=== PATIENT | female | born 1990 | race Two or more races ===

== ENCOUNTER 2025-02-11 13:12 | Emergency (ER) | payer OTHER ==
[~2025-02-11] VITALS: Ht 172.7 cm; Wt 68.5 kg
[2025-02-11 13:14] VITALS: BP 132/86; PULSE 103; RESP 16; O2SAT 98
--- NOTE | 2025-02-11 14:59 | DVH ---
EXAM: XY L FOOT 3 VIEW XRAY INDICATION: ro fb TECHNIQUE: 3 views of the left foot COMPARISON: None FINDINGS/IMPRESSION: No radiographic evidence of an acute osseous abnormality. There is no acute fracture, osseous malalignment, or aggressive focal osseous lesion. No radiopaque foreign body.
--- NOTE | 2025-02-11 16:40 | ED.PDOC ---
HPI Comments 34 y.o female presents to the ED for an evaluation of a laceration to her left lateral food. Patient reports around [id number] today, she heard her neighbor fall, went to assist him up and noticed laceration due to shattered glass shattered on the floor. Controlled bleeding upon ED arrival and was irrigated prior to laceration repair. She is up to date with tetanus vaccine. she denies any fever, chills or numbness to foot. Laceration measures 2.5cm and is a U- shape. Chief Complaint: Laceration Time Seen by MD: 16:30 Reviewed Notes: Nurses Notes, Medications, Allergies Allergies: Coded Allergies: NO KNOWN ALLERGIES (Unverified , 02/11/25) Information Source: Patient Mode of Arrival: Ambulatory Severity: Moderate Severity of Laceration: Controlled Bleeding Complexity: Simple Timing: Hours Laceration Location: Foot Mechanism: Glass Laceration Length (cm): 2 Skin Type: Irregular Depth of Injury: Skin Tender: Moderate Associated Signs and Symptoms: Bleeding Past Medical History PAST MEDICAL HISTORY: Denies Surgical History: Denies all surgeries GUEST EXPERIENCE CAPTAIN History: No Pertinent GUEST EXPERIENCE CAPTAIN History Family History Family History: Reviewed,noncontributory to illness Social History Smoker: Non-Smoker Alcohol: Denies ETOH Use Drugs: Denies Drug Use Lives In: Home Constitutional: denies: chills, diaphoresis, fatigue, fever, malaise, sweats, weakness, others EENTM: denies: blurred vision, double vision, ear bleeding, ear discharge, ear drainage, ear pain, ear ringing, eye pain, eye redness, hearing loss, mouth pain, mouth swelling, nasal discharge, nose bleeding, nose congestion, nose pain, photophobia, tearing, throat pain, throat swelling, voice changes, others Respiratory: denies: cough, hemoptysis, orthopnea, SOB at rest, shortness of breath, SOB with excertion, stridor, wheezing, others Cardiovascular: denies: chest pain, dizzy spells, diaphoresis, Dyspnea on exertion, edema, irregular heart beat, left arm pain, lightheadedness, palpitations, PND, syncope, others Gastrointestinal: denies: abdomen distended, abdominal pain, blood streaked bowels, constipated, diarrhea, dysphagia, difficulty swallowing, hematemesis, melena, nausea, poor appetite, poor fluid intake, rectal bleeding, rectal pain, vomiting, others Genitourinary: denies: abnormal vagina bleeding, burning, dyspareunia, dysuria, flank pain, frequency, hematuria, incontinence, pain, , vagina discharge, urgency, others Neurological: denies: dizziness, fainting, headache, left sided numbness, left sided weakness, numbness, paresthesia, pre-existing deficit, right sided numbness, right sided weakness, seizure, speech problems, tingling, tremors, weakness, others Musculoskeletal: denies: back pain, gout, joint pain, joint swelling, muscle pain, muscle stiffness, neck pain, others Integumetry: reports: laceration; denies: bruises, change in color, change in hair/nails, dryness, lesions, lumps, rash, wounds, others Allergic/Immunocompromised: denies: Difficulty Healing, Frequent Infections, Hives, Itching, others Hematologic/Lymphatic: denies: anemia, blood clots, easy bleeding, easy b ruising, swollen glands, others Endocrine: denies: excessive hunger, excessive sweating, excessive thirst, excessive urination, flushing, intolerance to cold, intolerance to heat, unexplained weight gain, unexplained weight loss, others Psychiatric: denies: anxiety, bipolar disorder, depression, hopeless, panic disorder, schizophrenia, sleepless, suicidal, others All Other Systems: Reviewed and Negative Physical Exam General Appearance: No Apparent Distress, Normal HEENT: Normal ENT Inspection, Pharynx Normal, TMs Normal Neck: Full Range of Motion, Non-Tender, Normal, Normal Inspection Respiratory: Chest Non-Tender, Lungs Clear, No Accessory Muscle Use, No Respiratory Distress, Normal Breath Sounds Cardiovascular: No Edema, No JVD, No Murmur, No Gallop, Normal Peripheral Pulses, Regular Rate/Rhythm Breast Exam: Deferred Gastrointestinal: No Organomegaly, Non Tender, No Pulsatile Mass, Normal Bowel Sounds, Soft Genitalia: Deferred Pelvic: Deferred Rectal: Deferred Extremities: No calf tenderness, Normal capillary refill, Normal inspection, Normal range of motion, Non-tender, No pedal edema Musculoskeletal : Apperance: Normal Neurologic: Alert, database marketing manager II-XII nml as Tested, No Motor Deficits, Normal Affect, Normal Mood, No Sensory Deficits Cerebellar Function: Normal Reflexes: Normal Skin: Lacerations (2.5cm U-shape laceration to the left lateral foot ) Lymphatic: No Adenopathy Was a procedure done? Was a procedure done?: Yes Sedation Sedation?: No Laceration Repair : Location left lateral foot Length 2.5 Anesthetic: Lidocaine (2 cc's ) Laceration Repair Prep: Saline, by Irrigation (prior to laceration repair ) Laceration Repair Wound Comple: epidermis/dermis repair Laceration Repair: Number of sutures (3-0 nylon ), Skin Informed consent obtained: Yes Risks, benefits, and alternati: Yes Differential diagnosis Generic Laceration: Abrasion/Contusion, Laceration, Avulsion X-Ray, Labs, Meds, VS Vital Signs Date Time Temp Pulse Resp B/P (MAP) Pulse Ox O2 Delivery O2 Flow Rate FiO2 02/11/25 13:14 103 16 132/86 98 34-year-old female presents here with a left foot laceration. At this time x- ray has been done with no evidence of foreign body. She states some glass fell on it. At this time the wound has been irrigated. She states her tetanus status is up-to-date. At this time I have sutured the wound with 3-0 nylon. Three simple interrupted sutures has been placed. Patient has been advised to have the sutures removed in proximally 14 days. Wound care instructions has been given to the patient. Advised her to follow up with the PCP in 2-3 days or return to the ER if symptoms worsen or persist. Time of 1ST Reevaluation: 16:35 Reevaluation 1ST: Unchanged Patient Education/Counseling: Diagnosis, Treatment Family Education/Counseling: No Family Present Departure 1 Departure Time of Disposition: 16:40 Impression: Primary Impression: Laceration of left foot Qualified Codes: S91.312A - Laceration without foreign body, left foot, initial encounter Disposition: HOME / SELF CARE / HOMELESS Condition: Stable Discharged With: Self Critical Care Note Critical Care Time?: No Stability Stability form required: No I personally scribed for MELODIE NARANJO MD ([email or web address]) on 02/11/25 at 16:40. Electronically submitted by Oralia Clemens ([facility]). MELODIE NARANJO MD Feb 11, 2025 16:40
[2025-02-11] MEDS: LIDOCAINE W/ EPINEPHRINE 2% INJ 20ML VIAL IJ ONE (17:00)
[2025-02-11] MEDS: BACITRACIN TOP OINT 1 UD PKG TOP ONE (17:00)
[2025-02-11] MEDS: TETANUS-DIPTH-ACEL PERTUSSIS 0.5ML SYR Tdap IM ONE (17:00)
== END 2025-02-11 17:05 | disposition home or self-care (01) ==
LOC: ER 13:12
DX: S91.312A Laceration without foreign body, left foot, initial encounter (principal); W25.XXXA Contact with sharp glass, initial encounter; Y93.89 Activity, other specified; Y92.89 Other specified places as the place of occurrence of the external cause; Y99.8 Other external cause status
CPT/HCPCS: 12001; 73630; 99283; A4649